=== PATIENT | female | born 1980 | race Hispanic/Latino ===

== ENCOUNTER 2018-12-31 19:06 | Emergency (ER) | payer OTHER ==
[~2018-12-31] VITALS: Ht 152.4 cm; Wt 81.6 kg
--- OUTSIDE RECORDS SUMMARY | 2018-12-31 19:08 | XMS REPORT ---
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 Allergies, Adverse Reactions, Alerts Allergy Name Allergy Type Status Severity Reaction(s) Onset Date Inactive Date Treating Clinician Comments No Known Allergies DA Active U 2018-09-18 00:00:00 Medications This patient has no known medications. Results Test Description Test Time Test Comments Text Results Atomic Results Result Comments CHROMOSOME ANALYSIS TISSUE 2018-10-01 07:52:00 CHROMOSOME ANALYSIS TISSUE (test code=CHROTIS) NORMAL RESULT: Normal MaleMICROARRAY RESULT: arr(1-22)x2,(XY)[id number] Male Result TO [id number] 10:21:00* Test Item Value Reference Range Comments GLUBED (test code=GLUBED) 199 mg/dL 65-110 [id number] 08:05:00* Test Item Value Reference Range Comments GLUBED (test code=GLUBED) 119 mg/dL 65-110 CBC W/AUTO [id number] 07:38:00* Test Item Value Reference Range Comments WHITE BLOOD CELL (test code=WBC) 4.6 K/mm3 6.6-12.1 RED BLOOD CELL (test code=RBC) 4.23 M/mm3 3.45-5.01 HEMOGLOBIN (test code=HGB) 12.8 g/dL 10.7-13.9 HEMATOCRIT (test code=HCT) 37.6 % 32.1-42.1 MEAN CELL VOLUME (test code=MCV) 89 fL 84.1-94.8 MEAN CELL HGB (test code=MCH) 30.3 pg 27-35 MEAN CELL HGB CONCETRATION (test code=MCHC) 34.0 gm/dL 32.2-34.1 RED CELL DISTRIBUTION WIDTH (test code=RDW) 12.2 % 12.4-16.5 PLATELET COUNT (test code=PLT) 118 K/mm3 133-385 IMMATURE PLATELET FRACTION (test code=IPF) 0.0 % 0.0-10.8 MEAN PLATELET VOLUME (test code=MPV) 10.9 fl 9.1-12.7 NEUTROPHIL % (test code=NT%) 52.5 % 56.5-79.4 LYMPHOCYTE % (test code=LY%) 33.8 % 14.3-34.3 MONOCYTE % (test code=MO%) 9.4 % 5.1-10.4 EOSINOPHIL % (test code=EO%) 3.7 % 0.1-3.0 BASOPHIL % (test code=BA%) 0.4 % 0.1-1.0 NEUTROPHIL # (test code=NT#) 2.4 K/mm3 LYMPHOCYTE # (test code=LY#) 1.6 K/mm3 MONOCYTE # (test code=MO#) 0.4 K/mm3 EOSINOPHIL # (test code=EO#) 0.17 K/mm3 BASOPHIL # (test code=BA#) 0.0 K/mm3 RBC MORPHOLOGY REQUIRED (test code=RBCM) NORMAL NORMAL PLATELET MORPHOLOGY REQUIRED (test code=PLTMR) NORMAL NORMAL [id number] 21:13:00* Test Item Value Reference Range Comments GLUBED (test code=GLUBED) 162 mg/dL 65-110 [id number] 20:11:00* Test Item Value Reference Range Comments GLUBED (test code=GLUBED) 222 mg/dL 65-110 RUBELLA [id number] 18:27:00* Test Item Value Reference Range Comments RUBELLA SCREEN (test code=RUBSC) 5.9 IUnit/ml Samples with a value >=5.0 IUnits/mL and <=9.9 IUnits/mL are considered equivocal for IgG antibodies to rubella virus. Obtain a new specimen and retest. [id number] 15:22:00* Test Item Value Reference Range Comments GLUBED (test code=GLUBED) 119 mg/dL 65-110 [id number] 11:41:00* Test Item Value Reference Range Comments GLUBED (test code=GLUBED) 160 mg/dL 65-110 [id number] 09:45:00* Test Item Value Reference Range Comments GLUBED (test code=GLUBED) 129 mg/dL 65-110 [id number] 07:01:00* Test Item Value Reference Range Comments GLUBED (test code=GLUBED) 147 mg/dL 65-110 AG HEPATITIS B [id number] 04:27:00* Test Item Value Reference Range Comments AG HEPATITIS B SURFACE (test code=HBSAG) NONREACTIVE NONREACTIVE Specimen Comment: [id number] CONSENT FORM SIGNED FOR HIV TESTING? YAB HEPATITIS C [id number] 04:27:00* Test Item Value Reference Range Comments AB HEPATITIS C (test code=HCVAB) NONREACTIVE NONREACTIVE SIGNAL TO CUTOFF (test code=CUTOFF) 0.15 <0.80 Specimen Comment: [id number] CONSENT FORM SIGNED FOR HIV TESTING? YAB TREPONEMA 2018-09-20 04:27:00* Test Item Value Reference Range Comments AB TREPONEMA (test code=TREPAB) NONREACTIVE NONREACTIVE Specimen Comment: [id number] CONSENT FORM SIGNED FOR HIV TESTING? YAB HIV 1 2 2018-09-20 04:27:00* Test Item Value Reference Range Comments AB HIV 1 2 (test code=WPX74MI) NONREACTIVE NONREACTIVE Done by [employer] HIV Ag/Ab Combo Screen Specimen Comment: [id number] CONSENT FORM SIGNED FOR HIV TESTING? YCBC W/AUTO DIFF 2018-09-20 04:09:00* Test Item Value Reference Range Comments WHITE BLOOD CELL (test code=WBC) 5.3 K/mm3 6.6-12.1 RED BLOOD CELL (test code=RBC) 4.69 M/mm3 3.45-5.01 HEMOGLOBIN (test code=HGB) 14.2 g/dL 10.7-13.9 HEMATOCRIT (test code=HCT) 41.5 % 32.1-42.1 MEAN CELL VOLUME (test code=MCV) 89 fL 84.1-94.8 MEAN CELL HGB (test code=MCH) 30.3 pg 27-35 MEAN CELL HGB CONCETRATION (test code=MCHC) 34.2 gm/dL 32.2-34.1 RED CELL DISTRIBUTION WIDTH (test code=RDW) 12.5 % 12.4-16.5 PLATELET COUNT (test code=PLT) 125 K/mm3 133-385 IMMATURE PLATELET FRACTION (test code=IPF) 0.0 % 0.0-10.8 MEAN PLATELET VOLUME (test code=MPV) 11.4 fl 9.1-12.7 NEUTROPHIL % (test code=NT%) 52.3 % 56.5-79.4 LYMPHOCYTE % (test code=LY%) 34.0 % 14.3-34.3 MONOCYTE % (test code=MO%) 10.3 % 5.1-10.4 EOSINOPHIL % (test code=EO%) 3.0 % 0.1-3.0 BASOPHIL % (test code=BA%) 0.2 % 0.1-1.0 NEUTROPHIL # (test code=NT#) 2.8 K/mm3 LYMPHOCYTE # (test code=LY#) 1.8 K/mm3 MONOCYTE # (test code=MO#) 0.6 K/mm3 EOSINOPHIL # (test code=EO#) 0.16 K/mm3 BASOPHIL # (test code=BA#) 0.0 K/mm3 RBC MORPHOLOGY REQUIRED (test code=RBCM) NORMAL NORMAL PLATELET MORPHOLOGY REQUIRED (test code=PLTMR) NORMAL NORMAL [id number] 02:18:00* Test Item Value Reference Range Comments GLUBED (test code=GLUBED) 119 mg/dL 65-110 [id number] 23:47:00* Test Item Value Reference Range Comments GLUBED (test code=GLUBED) 143 mg/dL 65-110 [id number] 21:01:00* Test Item Value Reference Range Comments GLUBED (test code=GLUBED) 158 mg/dL 65-110 [id number] 18:52:00* Test Item Value Reference Range Comments GLUBED (test code=GLUBED) 209 mg/dL 65-110 [id number] 16:48:00* Test Item Value Reference Range Comments GLUBED (test code=GLUBED) 146 mg/dL 65-110 [id number] 13:16:00* Test Item Value Reference Range Comments GLUBED (test code=GLUBED) 167 mg/dL 65-110 CBC W/AUTO [id number] 11:49:00* Test Item Value Reference Range Comments WHITE BLOOD CELL (test code=WBC) 5.5 K/mm3 6.6-12.1 RED BLOOD CELL (test code=RBC) 4.61 M/mm3 3.45-5.01 HEMOGLOBIN (test code=HGB) 13.9 g/dL 10.7-13.9 HEMATOCRIT (test code=HCT) 40.8 % 32.1-42.1 MEAN CELL VOLUME (test code=MCV) 89 fL 84.1-94.8 MEAN CELL HGB (test code=MCH) 30.2 pg 27-35 MEAN CELL HGB CONCETRATION (test code=MCHC) 34.1 gm/dL 32.2-34.1 RED CELL DISTRIBUTION WIDTH (test code=RDW) 12.7 % 12.4-16.5 PLATELET COUNT (test code=PLT) 118 K/mm3 133-385 IMMATURE PLATELET FRACTION (test code=IPF) 2.8 % 0.0-10.8 MEAN PLATELET VOLUME (test code=MPV) 10.7 fl 9.1-12.7 NEUTROPHIL % (test code=NT%) 60.8 % 56.5-79.4 LYMPHOCYTE % (test code=LY%) 24.5 % 14.3-34.3 MONOCYTE % (test code=MO%) 11.7 % 5.1-10.4 EOSINOPHIL % (test code=EO%) 2.4 % 0.1-3.0 BASOPHIL % (test code=BA%) 0.2 % 0.1-1.0 NEUTROPHIL # (test code=NT#) 3.3 K/mm3 LYMPHOCYTE # (test code=LY#) 1.3 K/mm3 MONOCYTE # (test code=MO#) 0.6 K/mm3 EOSINOPHIL # (test code=EO#) 0.13 K/mm3 BASOPHIL # (test code=BA#) 0.0 K/mm3 RBC MORPHOLOGY REQUIRED (test code=RBCM) NORMAL NORMAL PLATELET MORPHOLOGY REQUIRED (test code=PLTMR) ABNORMAL NORMAL RESULTS VERIFIED BY REPEAT ANALYSISLARGE PLTS PRESENT.[id number] 10:02:00 * Test Item Value Reference Range Comments GLUBED (test code=GLUBED) 155 mg/dL 65-110 [id number] 07:59:00* Test Item Value Reference Range Comments GLUBED (test code=GLUBED) 134 mg/dL 65-110 [id number] 05:42:00* Test Item Value Reference Range Comments GLUBED (test code=GLUBED) 145 mg/dL 65-110 [id number] 03:53:00* Test Item Value Reference Range Comments GLUBED (test code=GLUBED) 135 mg/dL 65-110 [id number] 01:37:00* Test Item Value Reference Range Comments GLUBED (test code=GLUBED) 172 mg/dL 65-110 [id number] 22:59:00* Test Item Value Reference Range Comments GLUBED (test code=GLUBED) 192 mg/dL 65-110 [id number] 20:27:00* Test Item Value Reference Range Comments GLUBED (test code=GLUBED) 220 mg/dL 65-110 [id number] 18:18:00* Test Item Value Reference Range Comments GLUBED (test code=GLUBED) 216 mg/dL 65-110 INFLUENZA A B [id number] 12:13:00* Test Item Value Reference Range Comments INFLUENZA A PCR (test code=FLUAPCR) POSITIVE NEGATIVE RESULTS CALLED TO DR.ECHEVERRY KAYE FLORES.READ BACK & CONFIRMED? YES.BY F.[facility] 09/18/18 1213. INFLUENZA B PCR (test code=FLUBPCR) NEGATIVE NEGATIVE COMPREHENSIVE METABOLIC [id number] 11:37:00* Test Item Value Reference Range Comments SODIUM (test code=NA) 135 mEq/L 135-145 POTASSIUM (test code=K) 4.1 mEq/L 3.5-5.0 CHLORIDE (test code=CL) 100 mEq/L 100-115 CARBON DIOXIDE (test code=CO2) 22 mEq/L 22-31 ANION GAP (test code=GAP) 16.90 10-20 GLUCOSE (test code=GLU) 368 mg/dL 65-110 BLOOD UREA NITROGEN (test code=BUN) 11 mg/dL 7-18 GLOMERULAR FILTRATION RATE (test code=GFR) 140 ml/min >60 CREATININE (test code=CREAT) 0.5 mg/dL 0.5-1.0 TOTAL PROTEIN (test code=PROT) 6.1 gm/dL 6.3-8.2 ALBUMIN (test code=ALB) 3.0 gm/dL 3.4-4.8 CALCIUM (test code=CA) 8.2 mg/dL 8.4-10.2 BILIRUBIN TOTAL (test code=BILT) 0.4 mg/dL 0.2-1.0 SGOT/AST (test code=AST) 53 units/L 15-37 SGPT/ALT (test code=ALT) 75 units/L 12-78 ALKALINE PHOSPHATASE TOTAL (test code=ALKP) 132 units/L 46-116 UA RFLX MICR CULT IF [id number] 11:29:00* Test Item Value Reference Range Comments UA COLOR (test code=COLU) YELLOW YELLOW UA APPEARANCE (test code=APPU) CLEAR CLEAR UA GLUCOSE DIPSTICK (test code=DGLUU) 3+ NEG UA BILIRUBIN DIPSTICK (test code=BILU) NEGATIVE NEG UA KETONE DIPSTICK (test code=KETU) 1+ NEG UA SPECIFIC GRAVITY (test code=SGU) >1.035 1.001-1.035 UA BLOOD DIPSTICK (test code=PIERRE) NEG NEG UA PH DIPSTICK (test code=JULIAN) 5.0 5-9 UA PROTEIN DIPSTICK (test code=PROU) NEGATIVE NEG UA UROBILINIOGEN DIPSTICK (test code=URO) NEGATIVE mg/dL NEG UA NITRITE DIPSTICK (test code=YADIRA) NEG NEG UA LEUKOCYTE ESTERASE DIPSTICK (test code=LEUU) NEG NEG UA WBC (test code=WBCU) 3-5 #/hpf NONE SEEN UA RBC (test code=RBCU) 3-5 #/hpf NONE SEEN UA EPITHELIAL CELLS (test code=EPIU) RARE #/HPF RARE-FEW UA MUCUS (test code=MUCU) RARE NONE SEEN CBC W/AUTO [id number] 11:17:00* Test Item Value Reference Range Comments WHITE BLOOD CELL (test code=WBC) 6.3 K/mm3 6.6-12.1 RED BLOOD CELL (test code=RBC) 4.72 M/mm3 3.45-5.01 HEMOGLOBIN (test code=HGB) 14.3 g/dL 10.7-13.9 HEMATOCRIT (test code=HCT) 41.8 % 32.1-42.1 MEAN CELL VOLUME (test code=MCV) 89 fL 84.1-94.8 MEAN CELL HGB (test code=MCH) 30.3 pg 27-35 MEAN CELL HGB CONCETRATION (test code=MCHC) 34.2 gm/dL 32.2-34.1 RED CELL DISTRIBUTION WIDTH (test code=RDW) 12.6 % 12.4-16.5 PLATELET COUNT (test code=PLT) 129 K/mm3 133-385 IMMATURE PLATELET FRACTION (test code=IPF) 0.0 % 0.0-10.8 MEAN PLATELET VOLUME (test code=MPV) 10.6 fl 9.1-12.7 NEUTROPHIL % (test code=NT%) 77.9 % 56.5-79.4 LYMPHOCYTE % (test code=LY%) 11.1 % 14.3-34.3 MONOCYTE % (test code=MO%) 9.7 % 5.1-10.4 EOSINOPHIL % (test code=EO%) 0.8 % 0.1-3.0 BASOPHIL % (test code=BA%) 0.2 % 0.1-1.0 NEUTROPHIL # (test code=NT#) 4.9 K/mm3 LYMPHOCYTE # (test code=LY#) 0.7 K/mm3 MONOCYTE # (test code=MO#) 0.6 K/mm3 EOSINOPHIL # (test code=EO#) 0.05 K/mm3 BASOPHIL # (test code=BA#) 0.0 K/mm3 RBC MORPHOLOGY REQUIRED (test code=RBCM) NORMAL NORMAL PLATELET MORPHOLOGY REQUIRED (test code=PLTMR) NORMAL NORMAL
[2018-12-31] MEDS ORDERED: FIORINAL 50-321 EACH PO (20:37)
[2018-12-31] MEDS ORDERED: NAPROSYN500 MG PO (20:37)
[2018-12-31] MEDS ORDERED: ONDANSETRON ODT8 MG PO (20:37)
--- NOTE | 2018-12-31 20:49 | Diagnostic Imaging Report ---
EXAMINATION: Head CT without contrast. HISTORY:Headache and nausea for 4 days. COMPARISON:None. TECHNIQUE: Multidetector axial images were obtained from the foramen magnum to the vertex without contrast. The images were reconstructed using brain and bone algorithms. Thin section brain images were reformatted into coronal and sagittal planes. Dose modulation, iterative reconstruction, and/or weight based adjustment of the mA/kV was utilized to reduce the radiation dose to as low as reasonably achievable. Intravenous contrast: None IMAGE QUALITY: Acceptable. FINDINGS: Skull/scalp: No lytic or blastic. lesions. No surgical changes. Parenchyma: No abnormal density. No acute hemorrhage, mass or acute major vascular territorial infarct. Arteries: No density suggestive of thrombosis. Dural sinuses: No abnormal density suggestive of thrombosis. Ventricles: No hydrocephalus or displacement. Extra-axial spaces: No abnormal density. Brain volume: Normal for age. Craniocervical junction: No mass, Chiari malformation, or basilar invagination. Sella: No mass. Paranasal/mastoid sinuses: Imaged portions unremarkable. IMPRESSION: No intracranial abnormality. Signed by: Dr. Sangita Schreiber M.D. on 12/31/2018 8:45 PM
== END 2018-12-31 21:03 | disposition home or self-care (01) ==
LOC: FSED 19:06
DX: G44.89 Other headache syndrome (principal); M54.2 Cervicalgia
CPT/HCPCS: 70450; 99283